=== PATIENT | female | born 1985 | race Caucasian/White ===

== ENCOUNTER 2016-09-26 05:36 | Emergency (ER) | payer OTHER ==
[~2016-09-26 05:36] MED LIST: MOTRIN 600 MG600 MG PO; PERCOCET 325 MG1 TA2 PO
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
--- NOTE | 2016-09-26 07:03 | RADIOLOGY REPORT ---
EXAMINATION: XR HUMERUS, LEFT CLINICAL INFORMATION: Pain after fall. COMPARISON: None TECHNIQUE: AP and lateral views of the left humerus. FINDINGS: There is a transverse fracture through the midshaft left humerus with mild dorsal angulation. The left humeral head is seated within a well-formed glenoid. IMPRESSION: Left humeral fracture.
[2016-09-26] MEDS ORDERED: PERCOCET 5-3251 EACH PO (07:58)
[2016-09-26 08:05] VITALS: BP 120/82
== END 2016-09-26 08:06 ==
LOC: ERH 05:36
DX: S42.322A Displaced transverse fracture of shaft of humerus, left arm, initial encounter for closed fracture (principal); W10.9XXA Fall (on) (from) unspecified stairs and steps, initial encounter; Y93.01 Activity, walking, marching and hiking; Y92.9 Unspecified place or not applicable
CPT/HCPCS: 73060-LT; 96374; 96376